=== PATIENT | female | born 2000 | race Caucasian/White ===

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

== ENCOUNTER 2021-10-05 23:48 | Emergency (ER) | payer OTHER ==
[~2021-10-05] VITALS: Ht 160 cm; Wt 105.2 kg
[2021-10-06 02:30] VITALS: BP 124/74
== END 2021-10-06 06:30 | disposition home or self-care (01) ==
LOC: EMS 23:50
DX: F41.9 Anxiety disorder, unspecified (principal)
CPT/HCPCS: 93005; 99283